=== PATIENT | male | born 1975 | race Caucasian/White ===

== ENCOUNTER 2022-11-06 09:21 | Outpatient (CLI) | payer BC ==
[~2022-11-06 09:21] MED LIST: Iopamidol 370 76% 100 ML VIAL ONE
== END 2022-11-06 09:22 | disposition home or self-care (01) ==
LOC: CSHRAD 09:21
PROVIDERS: ATTEND Urology
DX: R31.29 Other microscopic hematuria (principal); N28.1 Cyst of kidney, acquired; N13.30 Unspecified hydronephrosis; N28.89 Other specified disorders of kidney and ureter
CPT/HCPCS: 74410; Q9967